=== PATIENT | male | born 1985 | race Caucasian/White ===

== ENCOUNTER 2017-09-29 14:49 | Emergency (ER) | payer OTHER ==
--- NOTE | 2017-09-29 14:53 | PDOC ---
Rapid Medical Evaluation Time Seen by Provider: 09/29/17 14:50 Medical Evaluation: 09/29/17 14:51 The patient presents with a chief complaint of: Left lateral back pain, sudden onset, denies urinary symptoms, denies trauma] I have performed a brief in-person evaluation of this patient. Pertinent physical exam findings: vss, [Left CVA tenderness.] I have ordered the following: [UA, UC] The patient will proceed to the ED for further evaluation. Discharge Disposition - Diagnosis Left-sided back pain - Referrals - Patient Instructions - Post Discharge Activity
[2017-09-29 14:55] VITALS: BMI 30.2
--- NOTE | 2017-09-29 14:58 | PDOC ---
History of Present Illness - General Chief Complaint: Back Pain Stated Complaint: BACK PAIN Time Seen by Provider: 09/29/17 14:50 - History of Present Illness Initial Comments: 09/29/17 15:34 Mr. Carcamo is a 31 yo male w/ pmh of cholecystitis (s/p cholecystectomy) who presents with sudden onset pain this morning to his left mid back. He reports the pain was initially colicky and that he had an instance of nausea and vomiting with the pain, but that afterwords the pain has maintained "10,000/10" pain. He cannot get comfortable and has never experienced pain like this before. He also reports some recent changes in his urine color over the last week. The patient denies chest pain, shortness of breath, headache and dizziness. Denies fever, chills, diarrhea and constipation. Denies dysuria, frequency, urgency and hematuria. Allergies: NKDA Past History - Past Medical History Allergies/Adverse Reactions: Allergies Allergy/AdvReac Type Severity Reaction Status Date / Time No Known Allergies Allergy Verified 09/29/17 14:51 Home Medications: Ambulatory Orders Ciprofloxacin HCl [Cipro] 500 mg PO DAILY #3 tablet 09/29/17 Ketorolac Tromethamine [Toradol] 10 mg PO Q6H PRN #16 tablet 09/29/17 COPD: No DVT: No - Immunization History Immunization Up to Date: Yes - Suicide/Smoking/Psychosocial Hx Smoking History: Never smoked Have you smoked in the past 12 months: No Information on smoking cessation initiated: No Hx Alcohol Use: No Drug/Substance Use Hx: No Substance Use Type: None Review of Systems - Review of Systems Comments:: 09/29/17 15:41 GENERAL/CONSTITUTIONAL: No fever or chills. No weakness. HEAD, EYES, EARS, NOSE AND THROAT: No change in vision. No ear pain or discharge. No sore throat. CARDIOVASCULAR: No chest pain or shortness of breath RESPIRATORY: No cough, wheezing, or hemoptysis. GASTROINTESTINAL: No nausea, vomiting, diarrhea or constipation. GENITOURINARY: +Urinary changes as describedNo dysuria, frequency, or change in urination. MUSCULOSKELETAL: +Left low back pain as described. SKIN: No rash NEUROLOGIC: No headache, vertigo, loss of consciousness, or change in strength/ sensation. ENDOCRINE: No increased thirst. No abnormal weight change HEMATOLOGIC/LYMPHATIC: No anemia, easy bleeding, or history of blood clots. ALLERGIC/IMMUNOLOGIC: No hives or skin allergy. *Physical Exam - Vital Signs Last Vital Signs Temp Pulse Resp BP Pulse Ox 98.1 F 93 H 16 147/90 98 09/29/17 14:52 09/29/17 14:52 09/29/17 14:52 09/29/17 14:52 09/29/17 14:52 - Physical Exam Comments: 09/29/17 15:41 GENERAL: +Patient jittery and constantly moving - unable to get comfortable. Awake, alert, and fully oriented HEAD: No signs of trauma, normocephalic, atraumatic EYES: PERRLA, EOMI, sclera anicteric, conjunctiva clear ENT: Auricles normal inspection, hearing grossly normal, nares patent, oropharynx clear without exudates. Moist mucosa NECK: Normal ROM, supple, no lymphadenopathy, JVD, or masses LUNGS: No distress, speaks full sentences, clear to auscultation bilaterally HEART: Regular rate and rhythm, normal S1 and S2, no murmurs, rubs or gallops, peripheral pulses normal and equal bilaterally. ABDOMEN: Soft, nontender, normoactive bowel sounds. No guarding, no rebound. No masses EXTREMITIES: Normal inspection, Normal range of motion, no edema. No clubbing or cyanosis. NEUROLOGICAL: Cranial nerves II through XII grossly intact. Normal speech, normal gait, no focal sensorimotor deficits SKIN: Warm, Dry, normal turgor, no rashes or lesions noted. ED Treatment Course - LABORATORY CBC & Chemistry Diagram: 09/29/17 15:40 09/29/17 15:40 Medical Decision Making - Medical Decision Making 09/29/17 16:33 Mr. Carcamo is a 32 yo male w/ pmh as described who presents for evaluation of sudden onset left back pain suspicious for nephrolithiasis. CBC/CMP/spiral CT sent for evaluation. Patient pain initially controlled w/ 4mg morphine. Toradol 30mg given as well after pain returned. 09/29/17 19:03 CT significant for bilateral punctate nonobstructing nephrolithiasis each 2mm as well as 2 mm calculus within urinary bladder possibly recently passed. Will discharge w/ instructions to follow-up with pcp and nephrology as needed. Toradol and ABX sent to patient's pharmacy for treatment. Patient verbalized understanding and agreement and will comply. *DC/Admit/Observation/Transfer Diagnosis at time of Disposition: Nephrolithiasis Left-sided back pain Qualifiers: Back pain location: low back pain Chronicity: acute Sciatica presence: without sciatica Qualified Code(s): M54.5 - Low back pain - Discharge Dispostion Disposition: HOME - Prescriptions Prescriptions: Ciprofloxacin HCl [Cipro] 500 mg PO DAILY #3 tablet Ketorolac Tromethamine [Toradol] 10 mg PO Q6H PRN #16 tablet PRN Reason: Pain - Referrals Referrals: Moody Vázquez MD [Primary Care Provider] - Saran Morelos MD., [Staff Physician] - - Patient Instructions Printed Discharge Instructions: DI for Kidney Stones Additional Instructions: Please return if any pain not controlled with proscribed medications. Take antibiotics as proscribed. Follow-up with primary care as discussed and urology as needed for further evaluation. - Post Discharge Activity
[2017-09-29] MEDS ORDERED: ONDANSETRON 4 MG/2 ML VIAL IVPUSH ONE ×2 (15:31→17:05)
[2017-09-29] MEDS ORDERED: morphine CARPU-JECT 4 MG/1 ML DISP.SYRIN IVPUSH ONE (15:31)
[2017-09-29] MEDS ORDERED: SODIUM CHLORIDE 1,000 ML IV STA (15:32)
[2017-09-29] MEDS ORDERED: MORPHINE SULFATE 10 MG/1 ML *VIAL ONE (15:41)
[2017-09-29] MEDS ORDERED: ONDANSETRON 4 MG/2 ML VIAL ONE (15:41)
[2017-09-29 15:50] LABS: BASO % 0.3 % (0-2.0); HEMATOCRIT 47.4 % (35.4-49); HEMOGLOBIN 16.4 GM/dL (11.7-16.9); LYMPH % 27.9 % (8-40); MCH 29.2 pg (25.7-33.7); MCHC 34.6 g/dl (32.0-35.9); MEAN CELL VOLUME 84.4 fl (80-96); MEAN PLT VOLUME 9.3 fl (7.5-11.1); MONO % 6.9 % (3.8-10.2); NEUT % 63.9 % (42.8-82.8); PLATELET COUNT 188 K/MM3 (134-434); RBC 5.61 M/mm3 (4.00-5.60); RDW 13.5 % (11.9-15.9); WHITE BLOOD COUNT 7.1 K/mm3 (4.0-10.0)
[2017-09-29 16:11] LABS: ALBUMIN 4.2 g/dl (3.4-5.0); ANION GAP 12 (8-16); BILIRUBIN,TOTAL 0.7 mg/dL (0.2-1.0); BLOOD UREA NITROGEN 17 mg/dL (7-18); CALCIUM 8.8 mg/dL (8.5-10.1); CHLORIDE 105 mmol/L (98-107); CO2 25 mmol/L (21-32); CREATININE 1.1 mg/dL (0.7-1.3); GLUCOSE,RANDOM 117 mg/dL (74-106); SGPT/ALT 29 U/L (12-78); SODIUM 142 mmol/L (136-145)
[2017-09-29 16:12] LABS: ALK PHOS 91 U/L (45-117)
--- NOTE | 2017-09-29 16:15 | PDOC ---
Attending Attestation - Resident Resident Name: Lito Begum - ED Attending Attestation I have performed the following: I have examined & evaluated the patient, The case was reviewed & discussed with the resident, I agree w/resident's findings & plan, Exceptions are as noted - HPI HPI: 09/29/17 16:13 32-year-old healthy male history of cholecystectomy 5 or 6 years ago presents with acute onset of left flank pain that awoke from sleep earlier this morning, persistent throughout the day and associated with some difficulty urinating, nonbloody nonbilious vomiting. No diarrhea or constipation, no gross hematuria, no fevers or chills. No known history of kidney stones, pain is slightly improved after receiving morphine upon arrival. - Physicial Exam PE: 09/29/17 16:14 Afebrile. Alert and comfortable now Moist mucosa Abdomen is soft/nontender/nondistended, positive left CVA tenderness No rash - Medical Decision Making 09/29/17 16:14 Patient seen and evaluated with the resident. I agree with the overall evaluation, assessment, and management with the following summary of visit: 32-year-old male with acute onset of left flank pain and some associated urinary complaints, exam localizes to the left flank. Presentation could be most consistent with renal colic, rule out UTI, less likely GI etiology. Labs, urinalysis CT of the abdomen and pelvis Pain control, IV fluids Reassess
[2017-09-29] MEDS ORDERED: KETOROLAC TROMETHAMINE 30 MG/1 ML VIAL IVPUSH ONE (16:29)
[2017-09-29] MEDS ORDERED: KETOROLAC TROMETHAMINE 30 MG/1 ML VIAL ONE (16:36)
[2017-09-29 16:46] LABS: POTASSIUM 4.3 mmol/L (3.5-5.1); SGOT/AST 24 U/L (15-37)
[2017-09-29] MEDS ORDERED: HYDROmorphone HCL CARPU-JECT 1 MG/1 ML DISP.SYRIN IVPUSH ONE (17:05)
[2017-09-29 18:42] VITALS: BP 105/68; PULSE 85; TEMP 98.5
[2017-09-29] MEDS ORDERED: CIPROFLOXACIN 500 MG TABLET (RESTRICTED TO ID) PO ONE (18:56)
== END 2017-09-29 19:29 | disposition home or self-care (01) ==
LOC: EDBD 14:49 → JER 14:49
PROC: 3E0333Z Introduction of Anti-inflammatory into Peripheral Vein, Percutaneous Approach (ICD-10-PCS; principal; 2017-09-29)
PROC: 3E033NZ Introduction of Analgesics, Hypnotics, Sedatives into Peripheral Vein, Percutaneous Approach (ICD-10-PCS; 2017-09-29)
PROC: 3E033GC Introduction of Other Therapeutic Substance into Peripheral Vein, Percutaneous Approach (ICD-10-PCS; 2017-09-29)
PROC: 3E0337Z Introduction of Electrolytic and Water Balance Substance into Peripheral Vein, Percutaneous Approach (ICD-10-PCS; 2017-09-29)
DX: N20.0 Calculus of kidney (principal)
CPT/HCPCS: 36415; 74176; 80053; 85025; 99282-25

== ENCOUNTER 2017-12-30 21:09 | Emergency (ER) | payer OTHER ==
[2017-12-30 21:27] VITALS: BMI 44.3
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
[2017-12-30 22:36] LABS: BASO % 0.5 % (0-2.0); EOS % 0.8 % (0-4.5); HEMATOCRIT 44.1 % (35.4-49); HEMOGLOBIN 14.5 GM/dL (11.7-16.9); LYMPH % 34.8 % (8-40); MCH 25.7 pg (25.7-33.7); MEAN CELL VOLUME 77.8 fl (80-96); MEAN PLT VOLUME 9.8 fl (7.5-11.1); MONO % 6.2 % (3.8-10.2); NEUT % 57.7 % (42.8-82.8); PLATELET COUNT 216 K/MM3 (134-434); RBC 5.66 M/mm3 (4.00-5.60); RDW 13.5 % (11.9-15.9); WHITE BLOOD COUNT 11.1 K/mm3 (4.0-10.0)
[2017-12-30 22:50] LABS: INR 1.06 (0.82-1.09)
[2017-12-30 23:00] LABS: ALBUMIN 4.2 g/dl (3.4-5.0); ANION GAP 10 (8-16); BILIRUBIN,TOTAL 0.6 mg/dL (0.2-1.0); BLOOD UREA NITROGEN 11 mg/dL (7-18); CHLORIDE 102 mmol/L (98-107); CO2 27 mmol/L (21-32); CREATININE 0.8 mg/dL (0.7-1.3); GLUCOSE,RANDOM 82 mg/dL (74-106); MAGNESIUM 2.2 mg/dL (1.8-2.4); POTASSIUM 3.8 mmol/L (3.5-5.1); SGOT/AST 39 U/L (15-37); SGPT/ALT 68 U/L (12-78); SODIUM 139 mmol/L (136-145); TOT PROT 7.5 g/dl (6.4-8.2)
--- NOTE | 2017-12-30 23:01 | PDOC ---
History of Present Illness <Robbi Raymond - Last Filed: 12/30/17 23:16> - History of Present Illness Initial Comments: 12/30/17 23:01 "The patient is a 32 year old male, with a significant past medical history of cholecystitis (s/p cholecystectomy), who presents to the emergency department with, 5 days of back pain. He describes his back pain to be intermittent, reproducible, and localized to the mid left side. The patient reports that is constantly running after his 1 year old daughter and thinks the pain may be related to that. However, pt states that the pain is worse with deep inspiration , though he denies CP/SOB. He denies any history of kidney stones. He denies any recent fevers, chills, headache or dizziness. He denies any recent nausea, vomit, diarrhea or constipation. He denies any recent chest pain. He denies any recent dysuria, frequency, urgency or hematuria. Allergies: NKA Past surgical history: Cholecystectomy. Social History: Marijuana and cigar smoker. Nonsmoker. Primary Care Physician: Dr. Jason Main " <Tobin Tillman - Last Filed: 12/31/17 01:11> - General Chief Complaint: Back Pain Stated Complaint: PAIN Time Seen by Provider: 12/30/17 21:23 Past History <Robbi Raymond - Last Filed: 12/30/17 23:16> - Past Medical History COPD: No DVT: No - Immunization History Immunization Up to Date: Yes - Suicide/Smoking/Psychosocial Hx Smoking History: Current every day smoker Have you smoked in the past 12 months: No Information on smoking cessation initiated: No Hx Alcohol Use: No Drug/Substance Use Hx: No Substance Use Type: None <Tobin Tillman - Last Filed: 12/31/17 01:11> - Past Medical History Allergies/Adverse Reactions: Allergies Allergy/AdvReac Type Severity Reaction Status Date / Time No Known Allergies Allergy Verified 12/30/17 21:27 Home Medications: Ambulatory Orders NK [No Known Home Medication] 12/30/17 Review of Systems - Review of Systems Comments:: 12/30/17 23:02 "GENERAL/CONSTITUTIONAL: No fever or chills. No weakness. HEAD, EYES, EARS, NOSE AND THROAT: No change in vision. No ear pain or discharge. No sore throat. CARDIOVASCULAR: No chest pain or shortness of breath. RESPIRATORY: No cough, wheezing, or hemoptysis. GASTROINTESTINAL: No nausea, vomiting, diarrhea or constipation. GENITOURINARY: No dysuria, frequency, or change in urination. +MUSCULOSKELETAL: Back pain. No joint or muscle swelling or pain. No neck pain. SKIN: No rash NEUROLOGIC: No headache, vertigo, loss of consciousness, or change in strength/ sensation. ENDOCRINE: No increased thirst. No abnormal weight change. HEMATOLOGIC/LYMPHATIC: No anemia, easy bleeding, or history of blood clots. ALLERGIC/IMMUNOLOGIC: No hives or skin allergy. " <Tobin Tillman - Last Filed: 12/31/17 01:11> *Physical Exam - Vital Signs Last Vital Signs Temp Pulse Resp BP Pulse Ox 98.2 F 92 H 16 151/108 99 12/30/17 21:25 12/30/17 21:25 12/30/17 21:25 12/30/17 21:25 12/30/17 21:25 <Robbi Raymond - Last Filed: 12/30/17 23:16> - Vital Signs Last Vital Signs Temp Pulse Resp BP Pulse Ox 98.2 F 92 H 16 151/108 99 12/30/17 21:25 12/30/17 21:25 12/30/17 21:25 12/30/17 21:25 12/30/17 21:25 - Physical Exam Comments: 12/30/17 23:02 """GENERAL: Awake, alert, and fully oriented, in no acute distress. HEAD: No signs of trauma EYES: PERRLA, EOMI, sclera anicteric, conjunctiva clear ENT: Auricles normal inspection, hearing grossly normal, nares patent, oropharynx clear without exudates. Moist mucosa NECK: Nontender, no stepoffs, Normal ROM, supple, no lymphadenopathy, JVD, or masses LUNGS: Breath sounds equal, clear to auscultation bilaterally. No wheezes, and no crackles HEART: Regular rate and rhythm, normal S1 and S2, no murmurs, rubs or gallops ABDOMEN: Soft, nontender, normoactive bowel sounds. No guarding, no rebound. No masses BACK: + L CVAT, + L mid back tenderness, no midline tenderness EXTREMITIES: Normal range of motion, no edema. No clubbing or cyanosis. No cords, erythema, or tenderness NEUROLOGICAL: Cranial nerves II through XII intact. 5/5 strength and sensation in all extremities, Normal speech, normal gait, normal cerebellar function SKIN: Warm, Dry, normal turgor, no rashes or lesions noted. <Tobin Tillman - Last Filed: 12/31/17 01:11> ED Treatment Course - LABORATORY CBC & Chemistry Diagram: 12/30/17 22:20 12/30/17 22:20 - ADDITIONAL ORDERS Additional order review: Laboratory Results 12/30/17 12/30/17 22:20 22:20 PT with INR 12.00 INR 1.06 Sodium 139 Potassium 3.8 Chloride 102 Carbon Dioxide 27 Anion Gap 10 BUN 11 D Creatinine 0.8 D Creat Clearance w eGFR > 60 Random Glucose 82 D Calcium 9.0 Magnesium 2.2 Total Bilirubin 0.6 AST 39 H D ALT 68 D Alkaline Phosphatase 77 Creatine Kinase 85 Troponin I < 0.02 Total Protein 7.5 Albumin 4.2 12/30/17 22:20 RBC 5.66 H MCV 77.8 L MCHC 33.0 RDW 13.5 MPV 9.8 Neutrophils % 57.7 Lymphocytes % 34.8 D Monocytes % 6.2 Eosinophils % 0.8 Basophils % 0.5 <Robbi Raymond - Last Filed: 12/30/17 23:16> - LABORATORY CBC & Chemistry Diagram: 12/30/17 22:20 12/30/17 22:20 - ADDITIONAL ORDERS Additional order review: 12/30/17 22:20 RBC 5.66 H MCV 77.8 L MCHC 33.0 RDW 13.5 MPV 9.8 Neutrophils % 57.7 Lymphocytes % 34.8 D Monocytes % 6.2 Eosinophils % 0.8 Basophils % 0.5 <Tobin Tillman - Last Filed: 12/31/17 01:11> Medical Decision Making - Medical Decision Making 12/30/17 23:02 32 M with L mid-back pain, also with L CVAT on exam. Likely msk pain, but will r /o nephrolithiasis with UA. Also consider PE given pleuritic nature of pain. - Labs, UA - CXR 12/31/17 01:08 Labs wnl UA with + blood, consistent with kidney stone. Review of pt's chart shows that he had a previous visit with similar pain and had CT done at that time showing likely recently passed kidney stone. Will defer repeat CT imaging at this time. Pt reassessed - states pain is minimal, will f/u with urology. Pt is well appearing, with normal vitals. Clinically stable for DC at this time. I discussed the physical exam findings, ancillary test results and final diagnoses with the patient. I answered all of the patient's questions. The patient was satisfied with the care received and felt comfortable with the discharge plan and treatment plan. The patient agrees to follow up with the primary care physician within 24-72 hours. <Tobin Tillman - Last Filed: 12/31/17 01:11> *DC/Admit/Observation/Transfer - Attestations Scribe Attestion: 12/30/17 23:17 Documentation prepared by Robbi Raymond, acting as medical staff coordinator for Tobin Tillman MD. <Robbi Raymond - Last Filed: 12/30/17 23:16> - Attestations Physician Attestion: 12/31/17 01:11 I, Dr. Tobin Tillman MD, attest that this document has been prepared under my direction and personally reviewed by me in its entirety. I further attest, that it accurately reflects all work, treatment, procedures and medical decision -making performed by me. <Tobin Tillman - Last Filed: 12/31/17 01:11> Diagnosis at time of Disposition: Nephrolithiasis - Discharge Dispostion Disposition: HOME - Referrals Referrals: Jason Main MD [Primary Care Provider] - Saran Morelos MD., MD [Staff Physician] - - Patient Instructions Printed Discharge Instructions: DI for Kidney Stones Additional Instructions: You likely have a kidney stone. This will most likely pass on its own in a few days. However, if you have persistent pain after 1 week, this may be a sign that it will not pass on its own. Take naproxen 500mg twice daily as needed for pain. Drink plenty of fluids to help the stone pass. If you experience pain persisting after 7 days, severe pain, vomiting, fevers, or any other concerning symptoms, return to the ER immediately. Otherwise, follow up with a urologist within 1 week for further evaluation. Call the number provided to make an appointment. - Post Discharge Activity
[2017-12-30 23:02] LABS: ALK PHOS 77 U/L (45-117)
[2017-12-31 00:53] LABS: URINE APPEARANCE CLEAR; URINE BILIRUBIN NEGATIVE (<2.0 mg/dL); URINE BLOOD 1+ (NEGATIVE); URINE COLOR LTYELLOW; URINE GLUCOSE (UA) NEGATIVE (NEGATIVE); URINE KETONE NEGATIVE (NEGATIVE); URINE LEUK ESTERASE NEGATIVE (NEGATIVE); URINE NITRITE NEGATIVE (NEGATIVE); URINE PROTEIN NEGATIVE (NEGATIVE); URINE UROBILINOGEN NEGATIVE mg/dL (0.2-1.0)
[2017-12-31 01:22] VITALS: BP 158/90; PULSE 90; TEMP 98
[2017-12-31 01:42] LABS: URINE MUCUS RARE
--- NOTE | 2017-12-31 11:28 | EKG ---
Test Reason : Blood Pressure : / mmHG Vent. Rate : 078 BPM Atrial Rate : 078 BPM P-R Int : 150 ms QRS Dur : 088 ms QT Int : 366 ms P-R-T Axes : 050 046 021 degrees QTc Int : 417 ms NORMAL SINUS RHYTHM NORMAL ECG NO PREVIOUS ECGS AVAILABLE Confirmed by CYNDI QUIROS MD ([id number]) on 12/31/2017 11:27:51 AM Referred By: Confirmed By:CYNDI QUIROS MD
== END 2017-12-31 01:23 | disposition home or self-care (01) ==
LOC: JER 21:09
DX: N20.0 Calculus of kidney (principal); F17.210 Nicotine dependence, cigarettes, uncomplicated
CPT/HCPCS: 36415; 71046-TC-FY; 80053; 81003; 81015; 82550; 83735; 84484; 85025; 85379; 85610; 93005; 93010; 99283-25

== ENCOUNTER 2018-05-21 23:33 | Emergency (ER) | payer OTHER ==
[2018-05-21 23:45] VITALS: BP 137/87; PULSE 90; TEMP 97.8; BMI 32.5
--- NOTE | 2018-05-22 00:12 | PDOC ---
History of Present Illness - General Chief Complaint: Pain, Acute Stated Complaint: PAIN, ACUTE Time Seen by Provider: 05/21/18 23:49 History Source: Patient Exam Limitations: No Limitations - History of Present Illness Travel History: No Initial Comments: 05/22/18 00:18 Best Contact: PCP:Dr. Moody Parr/ [facility] Pmhx: 2018: Renal stones...Acid reflux Pshx: 2011: Lap cholecystectomy, Left inguinal hernia as a child Allergies: NKDA FH:0 Social Hx: Cigarettes/ 0 Alcohol/ 0 Drugs/0 33-year-old male presents to the ER complaining of left-sided flank pain. Pain is described as 5/10 sharp intermittent nonradiating discomfort with increased urination but denies fever, chills, nausea/vomiting, chest pain, shortness of breath, back pains, urinary symptoms: Frequency/urgency/hesitancy, hematuria. Patient states the pain is exacerbated on touch but alleviated at rest and laying supine. Patient states pain feels similar to his previous renal colic. Past History - Past Medical History Allergies/Adverse Reactions: Allergies Allergy/AdvReac Type Severity Reaction Status Date / Time No Known Allergies Allergy Verified 05/21/18 23:44 Home Medications: Ambulatory Orders NK [No Known Home Medication] 05/22/18 COPD: No DVT: No - Surgical History Cholecystectomy: Yes - Immunization History Immunization Up to Date: Yes - Suicide/Smoking/Psychosocial Hx Smoking History: Never smoked Have you smoked in the past 12 months: No Information on smoking cessation initiated: No Hx Alcohol Use: No Drug/Substance Use Hx: No Substance Use Type: None Review of Systems - Review of Systems Able to Perform ROS?: Yes Comments:: 05/22/18 00:15 CONSTITUTIONAL: Absent: fever, chills, diaphoresis, generalized weakness, malaise, loss of appetite HEENT: Absent: rhinorrhea, nasal congestion, throat pain, throat swelling, difficulty swallowing, mouth swelling, ear pain, eye pain, visual Changes CARDIOVASCULAR: Absent: chest pain, loss of consciousness, palpitations, irregular heart rate, peripheral edema RESPIRATORY: Absent: cough, shortness of breath, dyspnea with exertion, orthopnea, wheezing, stridor, hemoptysis GASTROINTESTINAL: Absent: abdominal pain, abdominal distension, nausea, vomiting, diarrhea, constipation, melena, hematochezia GENITOURINARY: +left flank pain with increase urination Absent: dysuria, frequency, urgency, hesitancy, hematuria, genital pain MUSCULOSKELETAL: Absent: myalgia, arthralgia, joint swelling SKIN: Absent: rash, itching, pallor HEMATOLOGIC/IMMUNOLOGIC: Absent: easy bleeding, easy bruising, lymphadenopathy, frequent infections ENDOCRINE: Absent: unexplained weight gain, unexplained weight loss, heat intolerance, cold intolerance Is the patient limited Citizen Of [place] proficient: No *Physical Exam - Vital Signs Last Vital Signs Temp Pulse Resp BP Pulse Ox 97.8 F 90 18 137/87 99 05/21/18 23:42 05/21/18 23:42 05/21/18 23:42 05/21/18 23:42 05/21/18 23:42 - Physical Exam Comments: 05/22/18 00:15 GENERAL: Well developed, well nourished. Awake and alert. No acute distress. HEENT: Normocephalic, atraumatic. PERRLA, EOMI. No conjunctival pallor. Sclera are non- icteric. Moist mucous membranes. Oropharynx is clear. NECK: Supple. Full ROM. No JVD. Carotid pulses 2+ and symmetric, without bruits. No thyromegaly. No lymphadenopathy. CARDIOVASCULAR: Regular rate and rhythm. No murmurs, rubs, or gallops. Distal pulses are 2+ and symmetric. PULMONARY: No evidence of respiratory distress. Lungs clear to auscultation bilaterally. No wheezing, rales or rhonchi. ABDOMINAL: Soft. Non-tender. Non-distended. No rebound or guarding. No organomegaly. Normoactive bowel sounds. MUSCULOSKELETAL +Left CVAT Normal range of motion at all joints. No bony deformities or tenderness. EXTREMITIES: No cyanosis. No clubbing. No edema. No calf tenderness. SKIN: Warm and dry. Normal capillary refill. No rashes. No jaundice. ED Treatment Course - LABORATORY CBC & Chemistry Diagram: 05/22/18 00:42 05/22/18 00:42 - RADIOLOGY Radiograph Interpretation: 05/22/18 03:[address] 0.2 cm left-sided nonobstructive renal calculus Miles splenomegaly Otherwise unremarkable CT of abdomen and pelvis *DC/Admit/Observation/Transfer Diagnosis at time of Disposition: Renal colic on left side - Discharge Dispostion Disposition: HOME Condition at time of disposition: Stable Decision to Admit order: No - Referrals Referrals: Moody Vázquez MD [Primary Care Provider] - Rigoberto Avila MD [Staff Physician] - - Patient Instructions Printed Discharge Instructions: Kidney Stones -- Adult Additional Instructions: Increase fluids Follow up with the urologist this week Return back to the ER for fever, chills, nausea/vomiting, increase/severe or worsening symptoms - Post Discharge Activity
[2018-05-22] MEDS ORDERED: SODIUM CHLORIDE 1,000 ML IV STA (00:13)
[2018-05-22 00:44] LABS: URINE APPEARANCE CLEAR; URINE BILIRUBIN NEGATIVE (<2.0 mg/dL); URINE COLOR LTYELLOW; URINE GLUCOSE (UA) NEGATIVE (NEGATIVE); URINE KETONE NEGATIVE (NEGATIVE); URINE LEUK ESTERASE NEGATIVE (NEGATIVE); URINE NITRITE NEGATIVE (NEGATIVE); URINE PROTEIN NEGATIVE (NEGATIVE); URINE UROBILINOGEN NEGATIVE mg/dL (0.2-1.0)
[2018-05-22] MEDS ORDERED: KETOROLAC TROMETHAMINE 30 MG/1 ML VIAL IVPUSH ONE (00:50)
[2018-05-22] MEDS ORDERED: KETOROLAC TROMETHAMINE 30 MG/1 ML VIAL ONE (00:53)
[2018-05-22 01:12] LABS: BASO % 0.1 % (0-2.0); EOS % 0.7 % (0-4.5); HEMATOCRIT 45.3 % (35.4-49); HEMOGLOBIN 15.6 GM/dL (11.7-16.9); LYMPH % 22.6 % (8-40); MCH 28.7 pg (25.7-33.7); MCHC 34.4 g/dl (32.0-35.9); MEAN CELL VOLUME 83.5 fl (80-96); MEAN PLT VOLUME 8.9 fl (7.5-11.1); MONO % 7.5 % (3.8-10.2); NEUT % 69.1 % (42.8-82.8); PLATELET COUNT 171 K/MM3 (134-434); RBC 5.42 M/mm3 (4.00-5.60); WHITE BLOOD COUNT 8.7 K/mm3 (4.0-10.0)
[2018-05-22 01:45] LABS: ALBUMIN 4.1 g/dl (3.4-5.0); ALK PHOS 96 U/L (45-117); ANION GAP 7 MMOL/L (8-16); BILIRUBIN,TOTAL 0.8 mg/dL (0.2-1); BLOOD UREA NITROGEN 14 mg/dL (7-18); CALCIUM 9.1 mg/dL (8.5-10.1); CHLORIDE 102 mmol/L (98-107); CO2 31 mmol/L (21-32); CREATININE 0.8 mg/dL (0.55-1.3); GLUCOSE,RANDOM 85 mg/dL (74-106); POTASSIUM 4.1 mmol/L (3.5-5.1); SGOT/AST 22 U/L (15-37); SGPT/ALT 37 U/L (13-61); SODIUM 139 mmol/L (136-145); TOT PROT 7.6 g/dl (6.4-8.2)
== END 2018-05-22 03:46 | disposition home or self-care (01) ==
LOC: JER 23:33 → JERBED 05-22 00:45 → UNDOADMIN 05-22 00:45 → JER 05-22 03:46
PROC: 3E0337Z Introduction of Electrolytic and Water Balance Substance into Peripheral Vein, Percutaneous Approach (ICD-10-PCS; principal; 2018-05-21)
PROC: 3E0333Z Introduction of Anti-inflammatory into Peripheral Vein, Percutaneous Approach (ICD-10-PCS; 2018-05-21)
DX: N13.2 Hydronephrosis with renal and ureteral calculous obstruction (principal)
CPT/HCPCS: 36415; 74176; 80053; 81003; 85025; 96361; 96374; 99282-25; J7030

== ENCOUNTER 2018-06-14 12:47 | Day surgery (SDC) | payer OTHER ==
[2018-06-10 19:49] VITALS: BMI 32.6
[2018-06-14] MEDS ORDERED: LIDOCAINE HCL/PF 2% SDV 5ML VIAL ONE (13:54)
[2018-06-14] MEDS ORDERED: PROPOFOL 20 ML ONE (13:54)
[2018-06-14] MEDS ORDERED: KETOROLAC TROMETHAMINE 30 MG/1 ML VIAL ONE (13:54)
[2018-06-14] MEDS ORDERED: MIDAZOLAM HCL 2 MG/2 ML SINGLE DOSE VIAL ONE (13:54)
--- NOTE | 2018-06-14 14:53 | OP ---
Operative Note - Note: Operative Date: 06/14/18 Pre-Operative Diagnosis: Left renal stone Operation: Left ESWL Findings: 5 mm mid pole Left renal stone Post-Operative Diagnosis: Same as Pre-op Surgeon: Rigoberto Avila Anesthesia: Fractional Estimated Blood Loss (mls): 0 Drains & Tubes with Location: none
[2018-06-14 16:27] VITALS: TEMP 97.3
[2018-06-14 16:29] VITALS: BP 122/76; PULSE 88
--- NOTE | 2018-08-01 17:05 | OP ---
DATE OF OPERATION: 06/14/2018 PREOPERATIVE DIAGNOSIS: Left renal stone. POSTOPERATIVE DIAGNOSIS: Left renal stone. PROCEDURE: Left extracorporeal shock-wave lithotripsy. ATTENDING: Stephany Triplett MD ANESTHESIA: Fractional. OPERATION: The patient was brought in the operating room, placed in supine position on the operating room table. Ultrasonography and fluoroscopy were performed. A 5-mm left midpole stone was identified. Anesthesia and preoperative antibiotics were then administered. Shock-wave lithotripsy was performed. Excellent fragmentation of the stone was noted under real-time ultrasonography and fluoroscopy. No complications were noted. The disposition of the patient was to the recovery room. STEPHANY TRIPLETT M.D. [id number]
== END 2018-06-14 16:30 | disposition home or self-care (01) ==
LOC: JASU-SURG 12:47
PROVIDERS: ATTEND Urology
PROC: 0TF4XZZ Fragmentation in Left Kidney Pelvis, External Approach (ICD-10-PCS; principal; 2018-06-14 14:45)
DX: N20.0 Calculus of kidney (principal)

== ENCOUNTER 2018-07-21 09:26 | Emergency (ER) | payer OTHER ==
[2018-07-21 09:31] VITALS: TEMP 98.2; BMI 29.4
[2018-07-21] MEDS ORDERED: KETOROLAC TROMETHAMINE 30 MG/1 ML VIAL IVPUSH ONE (09:41)
[2018-07-21] MEDS ORDERED: SODIUM CHLORIDE 1,000 ML IV STA ×2 (09:41→12:44)
[2018-07-21] MEDS ORDERED: ONDANSETRON 4 MG/2 ML VIAL IVPUSH ONE (09:41)
--- NOTE | 2018-07-21 09:50 | PDOC ---
History of Present Illness - General Chief Complaint: Pain, Acute Stated Complaint: BACK PAIN Time Seen by Provider: 07/21/18 09:37 History Source: Patient Exam Limitations: No Limitations - History of Present Illness Travel History: No Initial Comments: 07/21/18 09:43 33-year-old male with history of renal colic to the left side including lithotripsy presents to the emergency room with complaints of severe sharp left flank pain causing mild nausea consistent with previous pain due to renal colic patient is followed by Dr. Darling to perform lithotripsy last month. Patient denies fever, chills abdominal pain or abdominal distention. Patient also currently denying hematuria but states urinary frequency. Timing/Duration: reports: getting worse Quality: reports: moderate Abdominal Pain Onset Location: reports: flank (left) Pain Radiation: reports: no radiation Activities at Onset: reports: none Aggravating Factors: improves with: None Alleviating Factors: improves with: None Past History - Travel Traveled outside of the country in the last 30 days: No - Past Medical History Allergies/Adverse Reactions: Allergies Allergy/AdvReac Type Severity Reaction Status Date / Time No Known Allergies Allergy Verified 06/14/18 13:32 Home Medications: Ambulatory Orders Valacyclovir HCl [Valtrex] 500 mg PO DAILY 06/14/18 COPD: No DVT: No - Surgical History Cholecystectomy: Yes - Immunization History Immunization Up to Date: Yes - Suicide/Smoking/Psychosocial Hx Smoking History: Never smoked Have you smoked in the past 12 months: No Hx Alcohol Use: No Drug/Substance Use Hx: No Substance Use Type: None Patient Lives Alone: No Lives with/in: spouse/SO Review of Systems - Review of Systems Able to Perform ROS?: Yes Constitutional: No: Symptoms Reported HEENTM: No: Symptoms Reported Respiratory: No: Symptoms reported Cardiac (ROS): No: Symptoms Reported ABD/GI: Yes: Nausea, Abdominal cramping : Yes: Frequency, Flank Pain. No: Hematuria Musculoskeletal: No: Symptoms Reported Integumentary: No: Symptoms Reported Neurological: No: Symptoms reported *Physical Exam - Vital Signs Last Vital Signs Temp Pulse Resp BP Pulse Ox 98.2 F 90 16 129/97 98 07/21/18 09:29 07/21/18 09:29 07/21/18 09:29 07/21/18 09:29 07/21/18 09:29 - Physical Exam General Appearance: Yes: Nourished, Appropriately Dressed, Mild Distress Respiratory/Chest: positive: Lungs Clear, Normal Breath Sounds. negative: Respiratory Distress, Accessory Muscle Use Cardiovascular: positive: Regular Rhythm, Regular Rate. negative: Murmur Gastrointestinal/Abdominal: positive: Soft. negative: Tenderness Musculoskeletal: positive: CVA Tenderness (L) Extremity: positive: Normal Inspection Integumentary: positive: Normal Color, Warm, Moist Neurologic: positive: Motor Strength 5/5 (ambulatory) Moderate Sedation - Procedure Monitoring Vital Signs: Procedure Monitoring Vital Signs Temperature 98.2 F 07/21/18 09:29 Pulse Rate 90 07/21/18 09:29 Respiratory Rate 16 07/21/18 09:29 Blood Pressure 129/97 07/21/18 09:29 O2 Sat by Pulse Oximetry (%) 98 07/21/18 09:29 ED Treatment Course - LABORATORY CBC & Chemistry Diagram: 07/21/18 10:10 07/21/18 10:10 Medical Decision Making - Medical Decision Making 07/21/18 09:46 Chief complaint: Left flank pain with urinary frequency since this am. Patient with lithotripsy performed on June 14 by Kaleb Lazaro Exam: appears uncomfortable, + Left CVA tenderness Plan: Fluids, Toradol, Zofran, CBC, comp and urinalysis urine culture and kidney ultrasound. Patient had abdominal CT done twice in the past 6 months 07/21/18 13:48 Laboratory Tests 07/21/18 12:30 Urine Blood 1+ H Ur Leukocyte Esterase Negative Urine WBC (Auto) 1 Urine RBC (Auto) 3 Laboratory Tests 07/21/18 07/21/18 10:10 10:10 WBC 7.5 Hgb 16.6 Hct 46.2 Plt Count 197 Absolute Neuts (auto) 5.7 Sodium 141 Potassium 4.1 Chloride 108 H Carbon Dioxide 24 Anion Gap 10 BUN 17 Creatinine 1.2 Creat Clearance w eGFR > 60 Random Glucose 113 H Calcium 8.9 Magnesium 2.5 H Total Bilirubin 0.7 AST 23 ALT 39 Alkaline Phosphatase 108 Total Protein 7.9 Albumin 4.4 07/21/18 13:54 Pt states feeling better and Receiving IV fluids and meds. Patient will be discharged from [facility] along with recommendations to follow-up with his urologist Dr. Kaleb lazaro *DC/Admit/Observation/Transfer Diagnosis at time of Disposition: Renal colic on left side - Discharge Dispostion Disposition: HOME Condition at time of disposition: Improved - Referrals - Patient Instructions Printed Discharge Instructions: Kidney Stones -- Adult Additional Instructions: Drink At least 2 L of water on a daily basis. Please increase your activity to promote movement of the stone and strain all urine. Please also follow up with your urologist. You may take Percocet for pain but do not operate any heavy machinery while taking this - Post Discharge Activity
[2018-07-21] MEDS ORDERED: ONDANSETRON 4 MG/2 ML VIAL ONE (10:06)
[2018-07-21] MEDS ORDERED: KETOROLAC TROMETHAMINE 30 MG/1 ML VIAL ONE (10:06)
[2018-07-21 10:44] LABS: BASO % 0.4 % (0-2.0); EOS % 0.4 % (0-4.5); HEMATOCRIT 46.2 % (35.4-49); HEMOGLOBIN 16.6 GM/dL (11.7-16.9); LYMPH % 17.9 % (8-40); MCH 29.8 pg (25.7-33.7); MCHC 35.9 g/dl (32.0-35.9); MEAN PLT VOLUME 9.2 fl (7.5-11.1); MONO % 5.9 % (3.8-10.2); NEUT % 75.4 % (42.8-82.8); PLATELET COUNT 197 K/MM3 (134-434); RBC 5.56 M/mm3 (4.00-5.60); WHITE BLOOD COUNT 7.5 K/mm3 (4.0-10.0)
[2018-07-21 11:27] LABS: ALBUMIN 4.4 g/dl (3.4-5.0); ALK PHOS 108 U/L (45-117); ANION GAP 10 MMOL/L (8-16); BILIRUBIN,TOTAL 0.7 mg/dL (0.2-1); BLOOD UREA NITROGEN 17 mg/dL (7-18); CALCIUM 8.9 mg/dL (8.5-10.1); CHLORIDE 108 mmol/L (98-107); CO2 24 mmol/L (21-32); CREATININE 1.2 mg/dL (0.55-1.3); GLUCOSE,RANDOM 113 mg/dL (74-106); MAGNESIUM 2.5 mg/dL (1.8-2.4); POTASSIUM 4.1 mmol/L (3.5-5.1); SGOT/AST 23 U/L (15-37); SGPT/ALT 39 U/L (13-61); SODIUM 141 mmol/L (136-145); TOT PROT 7.9 g/dl (6.4-8.2)
[2018-07-21 13:14] LABS: URINE APPEARANCE CLEAR; URINE BILIRUBIN NEGATIVE (<2.0 mg/dL); URINE COLOR YELLOW; URINE GLUCOSE (UA) NEGATIVE (NEGATIVE); URINE KETONE NEGATIVE (NEGATIVE); URINE LEUK ESTERASE NEGATIVE (NEGATIVE); URINE NITRITE NEGATIVE (NEGATIVE); URINE PROTEIN NEGATIVE (NEGATIVE); URINE UROBILINOGEN NEGATIVE mg/dL (0.2-1.0)
[2018-07-21 13:19] LABS: EPI CELLS RARE /HPF (FEW); URINE BACTERIA MANY /hpf (NONE SEEN); URINE MUCUS RARE
[2018-07-21 14:23] VITALS: BP 140/88; PULSE 89
== END 2018-07-21 14:23 | disposition home or self-care (01) ==
LOC: JER 09:26
PROC: 3E0337Z Introduction of Electrolytic and Water Balance Substance into Peripheral Vein, Percutaneous Approach (ICD-10-PCS; principal; 2018-07-21)
PROC: 3E033GC Introduction of Other Therapeutic Substance into Peripheral Vein, Percutaneous Approach (ICD-10-PCS; 2018-07-21)
PROC: 3E0333Z Introduction of Anti-inflammatory into Peripheral Vein, Percutaneous Approach (ICD-10-PCS; 2018-07-21)
DX: N23 Unspecified renal colic (principal); Z87.442 Personal history of urinary calculi
CPT/HCPCS: 36415; 76775-TC; 80053; 81003; 81015; 83735; 85025; 87086; 99283-25; J7030